=== PATIENT | male | born 1960 | race Caucasian/White ===

== ENCOUNTER 2018-09-14 22:32 | Emergency (ER) | payer BC ==
[~2018-09-14] VITALS: Ht 177.8 cm; Wt 72.6 kg
--- NOTE | 2018-09-14 22:35 | NUR ---
patient arrive at the ER with CC colicky right flank pain �3 hours. Patient AAOx4. Able to speak in full sentences. Denies any CP/SOB, N/V/D. In no acute respiratory distress. No cardiovascular concern. No /GI concern. Bed on lock position. Fall precaution per protocol.
[2018-09-14] MEDS ORDERED: SIMVASTATIN 20 MG TAB (22:38)
--- NOTE | 2018-09-14 22:44 | NUR ---
DR CARABALLO INTO EVAL PATIENT
[2018-09-14 22:55] LABS: *BILIRUBIN,URIN NEGATIVE (NEGATIVE); *BLOOD, URINE 3+ (NEGATIVE); *CLARITY,URINE CLEAR (CLEAR); *COLOR,URINE YELLOW (YELLOW); *KETONES,URINE 1+ (NEGATIVE); *UROBILINOGEN,URINE 0.2 E.U./dl (NORMAL); LEUKOCYTE ESTERASE ,URINE NEGATIVE (NEGATIVE); NITRITE, URINE NEGATIVE (NEGATIVE); PH,URINE 8.5 (5.0-8.0); UGLUCOSE NEGATIVE (NEGATIVE)
[2018-09-14 23:04] LABS: BACTERIA,URINE NONE SEEN /HPF (NONE SEEN); MUCUS,URINE FEW /LPF (0-FEW); RBC,URINE 20-50 /HPF (0-3); SQUAMOUS EPITHELIAL CELL,UR FEW /HPF (NONE SEEN); WBC,URINE 0-3 /HPF (0-3)
--- NOTE | 2018-09-14 23:15 | NUR ---
PATIENT PAIN FREE. NO DISTRESS NOTED
--- NOTE | 2018-09-14 23:25 | NUR ---
Patient discharged to home in stable conditon. Written and verbal after care instructions given. Patient verbalizes understanding of instructions. WALKED OUT OF ER WITH NO DISTRESS NOTED
[2018-09-14 23:26] VITALS: BP 118/77
== END 2018-09-14 23:27 | disposition home or self-care (01) ==
LOC: ER 22:35
DX: N20.0 Calculus of kidney (principal); E78.5 Hyperlipidemia, unspecified; Z79.899 Other long term (current) drug therapy
CPT/HCPCS: A4663

== ENCOUNTER 2018-09-30 13:58 | Emergency (ER) | payer BC ==
[~2018-09-30] VITALS: Ht 177.8 cm; Wt 74.4 kg
[~2018-09-30 13:58] MED LIST: SIMVASTATIN 20 MG TAB
--- NOTE | 2018-09-30 14:39 | NUR ---
Dr Pollack is at bedside, pending MD orders
[2018-09-30 15:09] LABS: *BILIRUBIN,URIN NEGATIVE (NEGATIVE); *BLOOD, URINE NEGATIVE (NEGATIVE); *CLARITY,URINE CLEAR (CLEAR); *COLOR,URINE LIGHT YELLOW (YELLOW); *KETONES,URINE NEGATIVE (NEGATIVE); *UROBILINOGEN,URINE 0.2 E.U./dl (NORMAL); LEUKOCYTE ESTERASE ,URINE NEGATIVE (NEGATIVE); NITRITE, URINE NEGATIVE (NEGATIVE); UGLUCOSE NEGATIVE (NEGATIVE)
[2018-09-30 15:13] LABS: BASOPHILS # (AUTO) 0.1 K/uL (0.0-8.0); BASOPHILS % (AUTO) 0.5 % (0.0-2.0); EOSINOPHILS # (AUTO) 0.1 K/uL (0.0-0.7); EOSINOPHILS % (AUTO) 0.7 % (0.0-7.0); HEMOGLOBIN 14.4 g/dL (12.5-16.3); LYMPHOCYTES # (AUTO) 1.5 K/uL (20.0-40.0); LYMPHOCYTES % (AUTO) 12.3 % (20.5-51.5); MEAN CORPUSCULAR HEMOGLOBIN 32.1 uug (23.8-33.4); MEAN CORPUSCULAR HGB CONC 33 g/dL (32.5-36.3); MONOCYTES # (AUTO) 0.8 K/uL (2.0-10.0); MONOCYTES % (AUTO) 6.4 % (0.0-11.0); NEUTROPHILS # (AUTO) 9.9 K/uL (1.8-8.9); NEUTROPHILS % (AUTO) 80.1 % (38.5-71.5); PLATELET COUNT (AUTO) 589 K/uL (152-348); RED BLOOD CELL COUNT(AUTO) 4.49 MIL/uL (4.06-5.63); WHITE BLOOD COUNT (AUTO) 12.4 K/uL (3.6-10.2)
[2018-09-30 15:19] LABS: *AMPHETAMINE, URINE NEGATIVE (NEGATIVE); *BARBITURATE, URINE NEGATIVE (NEGATIVE); *CANNABINOID, URINE NEGATIVE (NEGATIVE); *COCCAINE, URINE NEGATIVE (NEGATIVE); *OPIATE, URINE POSITIVE (NEGATIVE); *PHENCYCLIDINE SCREEN,URINE NEGATIVE (NEGATIVE)
[2018-09-30 15:21] LABS: CARBON DIOXIDE 29 mmol/L (21-32); CHLORIDE 105 mmol/L (98-107); CREATININE 0.9 mg/dL (0.6-1.3); GLUCOSE 112 mg/dL (74-106); POTASSIUM 4.2 mmol/L (3.5-5.1); UREA NITROGEN, BLOOD 14 mg/dL (7-18)
[2018-09-30 15:27] LABS: ALANINE AMINOTRANSFERASE 15 U/L (16-63); ALKALINE PHOSPHATASE 52 U/L (50-136); ASPARTATE AMINOTRANSFERASE 13 U/L (15-37); BILIRUBIN,DIRECT 0.1 mg/dL (0.0-0.2); BILIRUBIN,TOTAL 0.3 mg/dL (0.2-1.0); TOTAL PROTEIN, SERUM 7.4 g/dL (6.4-8.2)
[2018-09-30 15:28] LABS: ETHANOL < 3 MG/DL (0-0)
[2018-09-30 15:29] LABS: ACETAMINOPHEN < 2.0 ug/mL (10-30)
--- NOTE | 2018-09-30 15:38 | NUR ---
Patient is resting comfortably on gurney with eyes closed, pending results & disposition, NAD. Spouse is at bedside.
[2018-09-30 15:50] LABS: THYROID STIMULATING HORMONE 0.715 mIU/mL (0.358-3.740)
--- NOTE | 2018-09-30 15:52 | NUR ---
Patient is now medically cleared, for psych evaluation@this time.
--- NOTE | 2018-09-30 15:58 | NUR ---
Per spouse, 'We don't need psych evaluation. We will do it as a family." notified.
--- NOTE | 2018-09-30 16:10 | NUR ---
Patient discharged to home in stable conditon with brisk steady gait. Written and verbal after care instructions given to patient and spouse. Patient and family verbalized understanding & compliance of instructions.
== END 2018-09-30 16:11 | disposition home or self-care (01) ==
LOC: ER 13:58
DX: F43.20 Adjustment disorder, unspecified (principal); E78.5 Hyperlipidemia, unspecified; Z79.899 Other long term (current) drug therapy
CPT/HCPCS: 36415; 71045; 80048; 80076; 80307; 81001; 82140; 84443; 84484; 85025; 85651; 85730; 93005; 99284; G0480 ×2; G0481; 70030-TC; A4663